=== PATIENT | male | born 1995 | race Caucasian/White ===

== ENCOUNTER 2018-02-28 21:36 | Emergency (ER) | payer SELFPAY, OTHER ==
[2018-02-28] MEDS: traMADol 50 MG TAB PO (23:40)
== END 2018-03-01 01:26 | disposition home or self-care (01) ==
LOC: FTE 21:36
DX: M25.561 Pain in right knee (principal); E66.9 Obesity, unspecified; F17.210 Nicotine dependence, cigarettes, uncomplicated; Z68.43 Body mass index [BMI] 50.0-59.9, adult
CPT/HCPCS: 73562; 99283-25

== ENCOUNTER 2018-06-25 20:53 | Emergency (ER) | payer OTHER ==
[2018-06-25] MEDS: LORAZEPAM 1 MG TAB PO (22:25)
[2018-06-25] MEDS: ASPIRIN 325 MG TAB PO (22:25)
== END 2018-06-25 23:07 | disposition home or self-care (01) ==
LOC: FTE 20:53
DX: F41.9 Anxiety disorder, unspecified (principal); E66.9 Obesity, unspecified; Z68.43 Body mass index [BMI] 50.0-59.9, adult
CPT/HCPCS: 93005; 99283-25